=== PATIENT | female | born 1950 | race Caucasian/White ===

== ENCOUNTER → 2023-10-13 07:56 | Outpatient (REF) | payer MEDICARE, BC, SELFPAY ==
[2023-10-13 10:45] LABS: Calcium 9.6 mg/dl (8.4-10.2)
[2023-10-13 11:00] LABS: Vitamin D, 25-OH*** 70.3 ng/mL (30-80)
[2023-10-13 11:13] LABS: Cortisol, Random 10.7 ug/dl
[2023-10-13 11:17] LABS: Urine Calcium 14.1 mg/dl
[2023-10-13 12:32] LABS: 24 Hour Urine Calcium 225.6 mg/day; 24 Hour Urine Total Volume 1600 ml
[2023-10-14 09:16] LABS: Intact PTH 31.7 pg/ml (13.6-85.8)
[2023-10-16 01:16] LABS: Endomysial IgA Antibody Titer <1:10 (<1:10)
[2023-10-16 01:43] LABS: IgA 62 mg/dl (70-400)
[2023-10-17 13:41] LABS: tTG IgA Antibody 3.5 EU/ml (0-19); tTG IgG Antibody 4.3 EU/ml (0-19)
[2023-10-17 20:25] LABS: Albumin 4.32 g/dL (3.75-5.01); Alpha 1 Globulin 0.26 g/dL (0.19-0.46); Alpha 2 Globulin 0.69 g/dL (0.48-1.05); Monoclonal Protein 0.81 g/dL; SPEP IFE Reflex IFE Done
[2023-10-17 20:40] LABS: IgA 79 mg/dL (68-408); IgG 1226 mg/dL (768-1632); IgM 71 mg/dL (35-263)
== END ==
LOC: HWLAB 07:56
PROVIDERS: ATTENDING PHYSICIAN Physician Assistant; FAMILY PHYSICIAN Family Medicine
DX: E07.9 Disorder of thyroid, unspecified (principal); E21.5 Disorder of parathyroid gland, unspecified; E55.9 Vitamin D deficiency, unspecified; K90.0 Celiac disease; M81.0 Age-related osteoporosis without current pathological fracture
CPT/HCPCS: 36415; 81050; 82306; 82340; 82533; 82784; 83516; 83970; 84155; 84165; 84443; 86140; 86231; 86334

== ENCOUNTER 2023-11-16 06:44 | Day surgery (SDC) | payer MEDICARE, BC, SELFPAY ==
[2023-11-16 13:30] VITALS: BMI 27.8
[2023-11-16 13:40] VITALS: BP 166/77; BMI 27.8
[2023-11-16 16:12] VITALS: BP 134/113
[2023-11-16 16:15] VITALS: BP 139/66
[2023-11-16 16:31] VITALS: BP 147/61
[2023-11-16 16:33] VITALS: BP 147/61
== END 2023-11-16 16:45 | disposition home or self-care (01) ==
LOC: SDS 06:44
PROVIDERS: ATTENDING PHYSICIAN Internal Medicine Gastroenterology
DX: D12.0 Benign neoplasm of cecum (principal); D12.2 Benign neoplasm of ascending colon; K64.0 First degree hemorrhoids
CPT/HCPCS: 45390; 88305

== ENCOUNTER → 2024-02-05 13:27 | Outpatient (REF) | payer MEDICARE, BC, SELFPAY ==
[2024-02-05 15:05] LABS: HDL Cholesterol 48 mg/dl; LDL Cholesterol, Calculated 57 mg/dl; Total Cholesterol 129 mg/dl (50-199); Triglyceride 120 mg/dl (10-149); Very Low Density Lipoprotein 24 mg/dl (0-30)
== END ==
LOC: HWLAB 13:27
PROVIDERS: ATTENDING PHYSICIAN Family Medicine
DX: E78.00 Pure hypercholesterolemia, unspecified (principal)
CPT/HCPCS: 36415; 80061

== ENCOUNTER 2024-05-16 06:07 | Day surgery (SDC) | payer MEDICARE, BC, SELFPAY ==
[2024-05-16 06:52] VITALS: BMI 28.4
[2024-05-16 06:53] VITALS: BMI 28.4
[2024-05-16 06:54] VITALS: BP 151/68
[2024-05-16 08:46] VITALS: BP 108/62
[2024-05-16 09:02] VITALS: BP 147/69
[2024-05-16 09:10] VITALS: BP 139/65
== END 2024-05-16 09:15 | disposition home or self-care (01) ==
LOC: SDS 06:07
PROVIDERS: ATTENDING PHYSICIAN Internal Medicine Gastroenterology
DX: Z12.11 Encounter for screening for malignant neoplasm of colon (principal); K57.30 Diverticulosis of large intestine without perforation or abscess without bleeding; T18.4XXA Foreign body in colon, initial encounter; W44.8XXA Other foreign body entering into or through a natural orifice, initial encounter; K64.0 First degree hemorrhoids; Z86.010 Personal history of colon polyps; Z98.890 Other specified postprocedural states
CPT/HCPCS: 45388; 45379; 88305

== ENCOUNTER → 2024-06-03 13:13 | Outpatient (REF) | payer MEDICARE, BC, SELFPAY ==
[2024-06-03 16:49] LABS: ALT (SGPT) 15 U/L (0-35); AST (SGOT) 22 U/L (14-36); Albumin 4.5 g/dl (3.5-5.0); Alkaline Phosphatase 70 U/L (38-126); Blood Urea Nitrogen 10 mg/dl (7-17); Calcium 9.5 mg/dl (8.4-10.2); Carbon Dioxide 29 mmol/L (22-30); Chloride 101 mmol/L (98-107); Glucose 87 mg/dl (70-99); Potassium 4.4 mmol/L (3.5-5.1); Sodium 141 mmol/L (135-145); Total Bilirubin 0.3 mg/dl (0.2-1.3); Total Protein 7.3 g/dl (6.3-8.2); eGFR > 60.00
== END ==
LOC: HWLAB 13:13
PROVIDERS: ATTENDING PHYSICIAN Internal Medicine Rheumatology; FAMILY PHYSICIAN Family Medicine; REFERRING PHYSICIAN Internal Medicine Hematology & Oncology
DX: M81.0 Age-related osteoporosis without current pathological fracture (principal)
CPT/HCPCS: 36415; 80053

== ENCOUNTER → 2024-07-12 15:20 | Outpatient (REF) | payer MEDICARE, BC, SELFPAY | LOC: RAD 15:20 | PROVIDERS: ATTENDING PHYSICIAN Nurse Practitioner Family | DX: R05.3 Chronic cough (principal) | CPT/HCPCS: 71046 ==

== ENCOUNTER → 2024-08-19 10:17 | Outpatient (REF) | payer MEDICARE, BC, SELFPAY ==
[2024-08-19 11:31] LABS: % Basophils 0.8 % (0-2); % Eosinophils 3.1 % (0-6); % Immature Granulocytes 0.3 % (0-0.5); % Monocytes 7.6 % (1.7-9.3); % Neutrophils 69.2 % (42.2-75.2); Absolute Basophils 0.1 10^3/uL (0-0.2); Absolute Eosinophils 0.3 10^3/uL (0-0.7); Absolute Lymphocytes 1.7 10^3/uL (1.2-3.4); Absolute Monocytes 0.7 10^3/uL (0.1-0.6); Absolute Neutrophils 6.1 10^3/uL (1.4-6.5); Hematocrit 44.4 % (37.0-47.0); Hemoglobin 14.5 g/dL (12.0-16.0); Mean Corp Hgb Conc. 32.7 g/dL (33.0-37.0); Mean Corpuscular Volume 88.8 fL (81.0-99.0); Mean Platelet Volume 9.8 fL (7.4-10.4); Nucleated Red Blood Cells % 0 %; Platelet Count 283 10^3/uL (130-400); Red Cell Dist. Width 12.6 % (11.5-14.5); White Blood Cell Count 8.9 10^3/uL (4.8-10.8)
[2024-08-19 12:01] LABS: ALT (SGPT) 19 U/L (0-35); AST (SGOT) 24 U/L (14-36); Albumin 4.5 g/dl (3.5-5.0); Alkaline Phosphatase 61 U/L (38-126); Blood Urea Nitrogen 13 mg/dl (7-17); Carbon Dioxide 30 mmol/L (22-30); Chloride 102 mmol/L (98-107); Glucose 98 mg/dl (70-99); HDL Cholesterol 56 mg/dl; LDL Cholesterol, Calculated 67 mg/dl; Potassium 4.5 mmol/L (3.5-5.1); Sodium 140 mmol/L (135-145); Total Bilirubin 0.4 mg/dl (0.2-1.3); Total Cholesterol 156 mg/dl (50-199); Total Protein 7.2 g/dl (6.3-8.2); Triglyceride 169 mg/dl (10-149); Very Low Density Lipoprotein 33 mg/dl (0-30); eGFR > 60.00
[2024-08-19 12:17] LABS: Vitamin D, 25-OH*** 68.5 ng/mL (30-80)
[2024-08-19 12:26] LABS: Urine Albumin Negative (Neg - Trace); Urine Bilirubin Negative (Negative); Urine Character Clear (Clear); Urine Color Yellow; Urine Glucose Negative (Negative); Urine Ketone Negative (Negative); Urine Leukocyte 1+ (Negative); Urine Nitrite Negative (Negative); Urine Occult Blood Negative (Negative); Urine Specific Gravity 1.015 (<1.030); Urine Urobilinogen Negative (Neg - 1+)
[2024-08-19 12:30] LABS: TSH Reflex To Free T4 1.51 uIU/ml (0.47-4.68)
[2024-08-19 12:33] LABS: Glycohemoglobin (HgbA1c) 5.6 % (4.0-5.6)
[2024-08-19 13:34] LABS: Urine Red Blood Cell 0-2 /HPF (0-2); Urine Urothelial Cell 0-2 /LPF (FEW)
[2024-08-19 14:23] LABS: Microalbumin, Random Urine <0.6 mg/dl (0.6-1.7)
== END ==
LOC: HWLAB 10:17
PROVIDERS: ATTENDING PHYSICIAN Family Medicine; REFERRING PHYSICIAN Internal Medicine Hematology & Oncology
DX: Z00.00 Encounter for general adult medical examination without abnormal findings (principal); M81.0 Age-related osteoporosis without current pathological fracture; E78.00 Pure hypercholesterolemia, unspecified; I25.10 Atherosclerotic heart disease of native coronary artery without angina pectoris; I10 Essential (primary) hypertension; C49.9 Malignant neoplasm of connective and soft tissue, unspecified; R73.01 Impaired fasting glucose
CPT/HCPCS: 36415; 80053; 80061; 81003; 81015; 82043; 82306; 82570; 83036; 84443; 85025

== ENCOUNTER → 2024-10-03 10:35 | Outpatient (REF) | payer MEDICARE, BC, SELFPAY | LOC: HWWDC 10:35 | PROVIDERS: ATTENDING PHYSICIAN Family Medicine | DX: Z00.00 Encounter for general adult medical examination without abnormal findings (principal); Z12.31 Encounter for screening mammogram for malignant neoplasm of breast | CPT/HCPCS: 77063; 77067 ==

== ENCOUNTER → 2024-10-22 10:03 | Outpatient (REF) | payer MEDICARE, BC, SELFPAY ==
[2024-10-22 13:00] LABS: Blood Urea Nitrogen 15 mg/dl (7-17); Calcium 9.7 mg/dl (8.4-10.2); Carbon Dioxide 27 mmol/L (22-30); Chloride 101 mmol/L (98-107); Glucose 90 mg/dl (70-99); Iron 115 ug/dl (37-170); Magnesium 2.4 mg/dl (1.6-2.3); Potassium 4.2 mmol/L (3.5-5.1); Sodium 136 mmol/L (135-145); eGFR > 60.00
[2024-10-22 14:05] LABS: Folate 8.5 ng/ml (2.76-20); Vitamin B12 254 pg/ml (239-931)
== END ==
LOC: HWRAD 10:03
PROVIDERS: ATTENDING PHYSICIAN Internal Medicine; FAMILY PHYSICIAN Family Medicine
DX: M25.511 Pain in right shoulder (principal); M79.2 Neuralgia and neuritis, unspecified; I10 Essential (primary) hypertension
CPT/HCPCS: 36415; 73030; 80048; 82607; 82746; 83540; 83735

== ENCOUNTER 2024-11-14 12:10 | Emergency (ER) | payer MEDICARE, BC, SELFPAY ==
[2024-11-14] VITALS (8 sets, daily range): BP systolic 117–171; BP diastolic 52–103; BMI 28.4
[2024-11-14 12:43] LABS: % Basophils 0.7 % (0-2); % Immature Granulocytes 0.8 % (0-0.5); % Lymphocytes 15.1 % (20.5-51.1); % Monocytes 7.7 % (1.7-9.3); % Neutrophils 72.7 % (42.2-75.2); Absolute Basophils 0.1 10^3/uL (0-0.2); Absolute Eosinophils 0.4 10^3/uL (0-0.7); Absolute Immature Granulocytes 0.1 10^3/uL (0-0.05); Absolute Lymphocytes 1.8 10^3/uL (1.2-3.4); Absolute Monocytes 0.9 10^3/uL (0.1-0.6); Absolute Neutrophils 8.5 10^3/uL (1.4-6.5); Hematocrit 37.6 % (37.0-47.0); Hemoglobin 12.5 g/dL (12.0-16.0); Mean Corp Hgb Conc. 33.2 g/dL (33.0-37.0); Mean Corpuscular Hgb 29.5 pg (27.0-31.0); Mean Corpuscular Volume 88.7 fL (81.0-99.0); Mean Platelet Volume 8.7 fL (7.4-10.4); Nucleated Red Blood Cells % 0 %; Platelet Count 458 10^3/uL (130-400); Red Blood Cell Count 4.24 10^6/uL (4.20-5.40); Red Cell Dist. Width 14.2 % (11.5-14.5); White Blood Cell Count 11.6 10^3/uL (4.8-10.8)
[2024-11-14 12:54] LABS: INR 0.84
[2024-11-14 12:55] LABS: APTT 29.8 Sec (23.4-35.0)
--- NOTE | 2024-11-14 12:57 | ED.CVA ---
History of Present Illness
General
Chief Complaint: CVA/TIA Symptoms
Time Seen by Provider: 11/14/24 12:41
Onset of Stroke Symptoms
Onset of symptoms known: No
Time pt last seen normal is known: Yes
Date last time pt seen normal: 11/13/24
History of Present Illness
History of Present Illness:
74-year-old female with history of hypertension and leiomyosarcoma presenting to the emergency department for strokelike symptoms. Patient reports that she woke up at some point in the middle the night, is unsure what time it was. She notes that
she had a weird sensation in the back of her head, denies headache. She tried to walk to the bathroom and felt very unsteady with weakness to her right side. She went back to sleep and when she woke up, was still having symptoms. She notes that
she went to sleep last evening feeling normal. She is unsure exactly when symptoms started. Denies history of stroke in the past. Denies acute changes in vision. Denies recent fall or trauma. Does note that she had cysts abdominal surgery for
her leiomyosarcoma this past week, was discharged from the hospital on Monday, 11/10. Denies any postsurgical complications. Denies chest pain or difficulty breathing. Denies fever. Denies additional acute medical complaints
Past History
Past History
ED Past Medical History: Cancer (Liposarcoma) and Other (Psoriasis)
Social History
Tobacco: Non-smoker
Alcohol: None
Drug: None
Living: alone
Phy Exam
Physical Exam
Physical Exam:
General: Well-appearing, no clinical signs of dehydration, nontoxic and in no acute distress
HEENT: protecting airway
Neck: appears supple
CV: Normal heart rate, regular rhythm
Resp: No accessory muscle use, no increased work of breathing
Abd: Soft and non-distended, mid abdominal incision, healing appropriately without any erythema, no drainage
Extremities: No deformities, no swelling
Neuro: alert, mild weakness to the right upper extremity in comparison to the right lower extremity, globally intact. Slight diminished sensation to the right upper extremity comparison to the left
: deferred
Rectal: deferred
Psych: Normal affect
Skin: Intact
Scores
NIH Stroke Score
Level of Consciousness: 0 - Alert
LOC Questions: 0-Answers both correctly
LOC Commands: 0-Performs both correctly
Best Horizontal Gaze: 0-Normal
Visual Jason: 0=Normal, no visual loss
Facial Palsy: 0=Normal, symmetrical
Motor - Right Arm: 0=No drift 10 seconds
Motor - Left Arm: 0=No drift 10 seconds
Motor - Right Le-No drift 5 seconds
Motor - Left Le-No drift 5 seconds
Limb Ataxia: 0-Absent
Sensation: 1-Mild loss
Best Language: 0-No aphasia
Dysarthria: 0-Normal
Extinction and Inattention: 0-No abnormality
Total Score:: 1
Course
Orders/Labs/Results
Orders:
Orders
11/14/24 12:27
Electrocardiogram (*1) Urgent
Reason for Study: Other
Other Reason for Exam: Possible Stroke
EKG- Treatment ONCE
11/14/24 12:29
Complete Blood Count/With Diff Urgent
Comprehensive Metabolic Panel Urgent
PTT Urgent
Prothrombin Time Urgent
Troponin I Urgent
11/14/24 12:52
CT Head & Neck Angio W/wo IV Urgent
Comment:
Reason For Exam: R-weakness since early this morning, r/o stroke
Abnormal Lab Results
11/14/24
12:29
WBC 11.6 H 10^3/uL
(4.8-10.8)
Plt Count 458 H 10^3/uL
(130-400)
Abs Immat Gran (auto) 0.1 H 10^3/uL
(0-0.05)
Absolute Neuts (auto) 8.5 H 10^3/uL
(1.4-6.5)
Absolute Monos (auto) 0.9 H 10^3/uL
(0.1-0.6)
Immature Gran % 0.8 H %
(0-0.5)
Lymphocytes % 15.1 L %
(20.5-51.1)
Glucose 113 H mg/dl
(70-99)
Calcium 10.4 H mg/dl
(8.4-10.2)
11/14/24 12:29
11/14/24 12:29
Vital Signs
Initial and Last Documented VS:
Initial Vital Signs
Temp Pulse Resp BP Pulse Ox
98.6 F 83 18 171/101 99
11/14/24 12:14 11/14/24 12:14 11/14/24 12:14 11/14/24 12:14 11/14/24 12:14
Last Documented Vital Signs
Temp Pulse Resp BP Pulse Ox
98.6 F 62 16 117/103 96
11/14/24 12:14 11/14/24 15:45 11/14/24 16:00 11/14/24 15:30 11/14/24 15:45
MDM/Problems Addressed
MDM/Problems Addressed:
74-year-old female with history of leiomyosarcoma presenting to the emergency department with right-sided weakness and 'feeling off' since early this morning. Vital signs significant for high blood pressure.
On exam, patient is resting comfortably, no acute distress or discomfort. On neurologic exam, does have some very minimal decrease sensation to the right upper extremity and slightly decreased strength in the right upper extremity comparison to the
left, however no significant deficits. CVA is a consideration, however patient is not within the window for any thrombolytics. Last normal was last evening, prior to going to bed. Patient denying any headache, lower suspicion for subarachnoid.
Plan for CT imaging and neurology consultation.
16:00 - Patient's CT imaging without acute pathology. 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 Suspected to be incidental finding. In consultation with neurology, will come evaluate for ultimate disposition
17:00 -Per neurology recommendations, feel patient can appropriately go home with 21 days of Plavix and follow-up. Patient is agreeable with this plan, would like to go home. However, strict return precautions were communicated and patient
verbalized understanding
*Critical Care Note
Total Time (30-74mins, 75-104mins- exclusive of procedures): Not Applicable
ED Attending Note
-
Portions of this chart may have been created with voice recognition software.� Occasional wrong word or��sound alike� substitutions may have occurred due to the inherent limitations of voice recognition software.
Discharge Plan
Departure
Prescriptions:
No Action
calcium carbonate-vitamin D3 1 EACH tablet
1 tab PO BID
docusate sodium [Colace] 100 mg Capsule
100 mg PO BID
aspirin 81 mg Tablet
81 mg PO DAILY
lisinopril 5 mg Tablet
5 mg PO DAILY
rosuvastatin 20 mg Tablet
20 mg PO HS
simethicone 80 mg Tablet
180 mg PO DIRECTED
Colyte
PO DIRECTED
Dulcolax (bisacodyl)
10 mg PO DIRECTED
Prevagen
1 cap PO DAILY
polyethylene glycol 3350 [Miralax] 17 gram/dose Powder
PO DAILY
Patient Comments:
This medication was daily for 7 days only.
Referrals:
Wally Van DO [Family Provider] -
Interventions
Interventions:
*Risk Screen - Suicide Last Done: 11/14/24 12:14
*General Assessment Last Done: 11/14/24 12:14
*Neglect/Abuse Screening Last Done: 11/14/24 12:14
*ED COVID-19 Vaccine History Last Done: 11/14/24 12:14
ED- Cardiac Assessment Last Done: 11/14/24 12:53
ED- Neurological Assessment Last Done: 11/14/24 12:39
ED- Pulmonary Assessment Last Done: 11/14/24 12:39
ED Swallowing Screen Last Done: 11/14/24 12:39
Discharge Date and Time
Print Language: SPANISH
[2024-11-14 13:01] LABS: ALT (SGPT) 30 U/L (0-35); AST (SGOT) 31 U/L (14-36); Albumin 4.3 g/dl (3.5-5.0); Alkaline Phosphatase 93 U/L (38-126); Blood Urea Nitrogen 11 mg/dl (7-17); Calcium 10.4 mg/dl (8.4-10.2); Carbon Dioxide 26 mmol/L (22-30); Chloride 101 mmol/L (98-107); Estimated Creatinine Clearance 72 ml/min; Glucose 113 mg/dl (70-99); Potassium 4.4 mmol/L (3.5-5.1); Sodium 136 mmol/L (135-145); Total Bilirubin 0.6 mg/dl (0.2-1.3); Total Protein 7.3 g/dl (6.3-8.2); eGFR > 60.00
[2024-11-14 13:10] LABS: Troponin I < 0.012 ng/ml
--- NOTE | 2024-11-14 16:42 | CON.NEURO ---
Neuro Assessment/Plan
Assessment
lacunar stroke vs TIA, symptoms are improving,
CTA head/neck no hemodynamically significant stenosis
stroke secondary prevention continue ASA 81, Rosuvastatin 20
21 days of plavix
offered patient options of admission, MRI which generally doesn't change the management, or seeing her book trimmer as an outpatient for afib screening; she elects the later option
Plan
d/c home with 21 days of Plavix
follow up with her book trimmer as an outpatient
Consultation
Order
Date of Consultation: 11/14/24
Requesting Provider: Ne Stringer
Reason for Consult: Stroke
Subjective/Objective
Subjective Data
Date of Service: November 14, 2024
Objective Data
Vital Signs
Temp Pulse Resp BP Pulse Ox
37.0 C 62 16 117/103 96
11/14/24 12:14 11/14/24 15:45 11/14/24 16:00 11/14/24 15:30 11/14/24 15:45
Lab Results
11/14/24 12:29
11/14/24 12:29
PT 12.0 Sec (11.4-14.6) 11/14/24 12:29
INR 0.84 11/14/24 12:29
APTT 29.8 Sec (23.4-35.0) 11/14/24 12:29
Sodium 136 mmol/L (135-145) 11/14/24 12:29
Potassium 4.4 mmol/L (3.5-5.1) 11/14/24 12:29
BUN 11 mg/dl (7-17) 11/14/24 12:29
Glucose 113 mg/dl (70-99) H 11/14/24 12:29
Calcium 10.4 mg/dl (8.4-10.2) H 11/14/24 12:29
Patient Allergies
No Known Allergies Allergy (Verified 11/16/23 13:51)
Physical Exam
-
AAOx3 speech clear, language intact
VFF, EOMI, face symmetric
trace right pronator drift
sensation intact to pin/vib
Medications
-
Home Medications
�Medication �Instructions �Recorded
calcium 500 mg (as 1 tab PO BID 12/07/20
carbonate)-vitamin D3 10 mcg (400
unit) tablet
Colyte PO DIRECTED 11/16/23
Dulcolax (bisacodyl) 10 mg PO DIRECTED 11/16/23
Prevagen 1 cap PO DAILY 11/16/23
aspirin 81 mg tablet 81 mg PO DAILY 11/16/23
docusate sodium 100 mg capsule 100 mg PO BID 11/16/23
(Colace)
lisinopril 5 mg tablet 5 mg PO DAILY 11/16/23
polyethylene glycol 3350 17 g PO DAILY 11/16/23
gram/dose oral powder (Miralax)
rosuvastatin 20 mg tablet 20 mg PO HS 11/16/23
simethicone 80 mg tablet 180 mg PO DIRECTED 11/16/23
[2024-11-14] MEDS: PLAVIX 75 MG PO (17:16)
== END 2024-11-14 17:18 | disposition home or self-care (01) ==
LOC: EMR 12:10
PROVIDERS: Student in an Organized Health Care Education/Training Program; EMERGENCY PHYSICIAN Student in an Organized Health Care Education/Training Program; FAMILY PHYSICIAN Family Medicine
DX: R53.1 Weakness (principal); G45.9 Transient cerebral ischemic attack, unspecified; I10 Essential (primary) hypertension
CPT/HCPCS: 99284; 70496; 70498; 80053; 84484; 85025; 85610; 85730; 93005; Q9967

== ENCOUNTER → 2024-11-19 09:45 | Outpatient (REF) | payer MEDICARE, BC, SELFPAY ==
[2024-11-19 12:53] LABS: ALT (SGPT) 17 U/L (0-35); AST (SGOT) 21 U/L (14-36); Albumin 4.1 g/dl (3.5-5.0); Alkaline Phosphatase 75 U/L (38-126); Blood Urea Nitrogen 11 mg/dl (7-17); Carbon Dioxide 28 mmol/L (22-30); Chloride 103 mmol/L (98-107); Glucose 95 mg/dl (70-99); Magnesium 2.4 mg/dl (1.6-2.3); Potassium 5.1 mmol/L (3.5-5.1); Sodium 136 mmol/L (135-145); Total Bilirubin 0.4 mg/dl (0.2-1.3); Total Protein 6.9 g/dl (6.3-8.2); eGFR > 60.00
== END ==
LOC: HWLAB 09:45
PROVIDERS: ATTENDING PHYSICIAN Internal Medicine Rheumatology; FAMILY PHYSICIAN Family Medicine
DX: E83.41 Hypermagnesemia (principal); M81.0 Age-related osteoporosis without current pathological fracture; Z79.899 Other long term (current) drug therapy
CPT/HCPCS: 36415; 80053; 83735

== ENCOUNTER → 2024-11-29 11:27 | Outpatient (REF) | payer MEDICARE, BC, SELFPAY ==
[2024-11-29 16:50] LABS: HDL Cholesterol 49 mg/dl; LDL Cholesterol, Calculated 62 mg/dl; Total Cholesterol 144 mg/dl (50-199); Triglyceride 166 mg/dl (10-149); Very Low Density Lipoprotein 33 mg/dl (0-30)
[2024-11-30 09:48] LABS: Glycohemoglobin (HgbA1c) 5.2 % (4.0-5.6)
== END ==
LOC: HWRAD 11:27
PROVIDERS: ATTENDING PHYSICIAN Nurse Practitioner Adult Health; FAMILY PHYSICIAN Family Medicine
DX: E04.1 Nontoxic single thyroid nodule (principal); R53.1 Weakness; I10 Essential (primary) hypertension; E78.5 Hyperlipidemia, unspecified; I67.1 Cerebral aneurysm, nonruptured; Z13.228 Encounter for screening for other metabolic disorders
CPT/HCPCS: 36415; 76536; 80061; 83036

== ENCOUNTER → 2024-12-19 13:09 | Outpatient (REF) | payer MEDICARE, BC, SELFPAY | LOC: PAVMRI 13:09 | PROVIDERS: ATTENDING PHYSICIAN Nurse Practitioner Adult Health; FAMILY PHYSICIAN Family Medicine | DX: R53.1 Weakness (principal) | CPT/HCPCS: 70553; A9575 ==

== ENCOUNTER → 2024-12-24 09:48 | Outpatient (REF) | payer MEDICARE, BC, SELFPAY ==
[2024-12-24 12:33] LABS: Magnesium 2.3 mg/dl (1.6-2.3)
[2024-12-24 13:21] LABS: Vitamin B12 344 pg/ml (239-931)
== END ==
LOC: HWLAB 09:48
PROVIDERS: ATTENDING PHYSICIAN Family Medicine
DX: R79.89 Other specified abnormal findings of blood chemistry (principal); E83.41 Hypermagnesemia; D51.8 Other vitamin B12 deficiency anemias
CPT/HCPCS: 36415; 82607; 83735

== ENCOUNTER 2025-04-08 13:24 | Emergency (ER) | payer MEDICARE, BC, SELFPAY ==
[2025-04-08 13:29] VITALS: BP 150/78
--- NOTE | 2025-04-08 14:23 | ED.GENMED ---
History of Present Illness
<Clarence Horta MD, Resident - Last Filed: 04/08/25 15:41>
General
Chief Complaint: Post Operative Problem(s)
Source: patient and family
Time Seen by Provider: 04/08/25 14:01
History of Present Illness
History of Present Illness:
75 year old female with recent craniotomy on 03/24/2025 comes to the ED at the request of her surgeon due to pain in her right leg. Her neurosurgeon was concerned for possible DVT in her leg so sent her to the ED. Patient describes that her right
thigh pain started shortly after she came back home following her surgery. The pain has not been sticking in one place, and has been radiating around her posterior thigh. She says that walking helps with her pain and that she took tylenol last night
which helped her fall asleep. Patient has a history of right foot neuropathy for which she has been taking 300mg Gabapentin. She does not have any shortness of breath, chest pain, fevers or chills. She has had 7 pounds of weight loss since the
surgery but her appetite started improving last night.
Past History
<Clarence Horta MD, Resident - Last Filed: 04/08/25 15:41>
Past History
ED Past Medical History: Cancer (Liposarcoma) and Other (Psoriasis)
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
Social History
Tobacco: Non-smoker
Alcohol: None
Drug: None
Living: alone
Phy Exam
<Clarence Horta MD, Resident - Last Filed: 04/08/25 15:41>
General Physical Exam
General Presentation: mild distress
General Skin: warm and dry
General Habitus: normal
General Mental: alert
Cardiovascular Exam
Cardiovascular Exam: regular rate/rhythm, no edema, no gallop and no murmur
Pulmonary Exam
Pulmonary Exam: lungs clear, no respiratory distress, no rales, no crackles, no rhonchi, no wheezing and no cough
Musculoskeletal Exam
Musculoskeletal Exam: other (Right posterior thigh tenderness)
Course
<Clarence Horta MD, Resident - Last Filed: 04/08/25 15:41>
Orders/Labs/Results
Orders:
Orders
04/08/25 13:37
CT Head W/o Iv Contrast Urgent
Comment:
Reason For Exam: Pain
04/08/25 13:38
US Periph Venous LOWER Ext RT Urgent
Comment:
Reason For Exam: Rule out DVT
Vital Signs
Initial and Last Documented VS:
Initial Vital Signs
Temp Pulse Resp BP Pulse Ox
98.2 F 73 15 150/78 99
04/08/25 13:29 04/08/25 13:29 04/08/25 13:29 04/08/25 13:29 04/08/25 13:29
Last Documented Vital Signs
Temp Pulse Resp BP Pulse Ox
98.2 F 73 15 150/78 99
04/08/25 13:29 04/08/25 13:29 04/08/25 13:29 04/08/25 13:29 04/08/25 14:24
<Conor Hope, DO - Last Filed: 04/08/25 19:43>
Orders/Labs/Results
Orders:
Orders
04/08/25 13:37
CT Head W/o Iv Contrast Urgent
Comment:
Reason For Exam: Pain
04/08/25 13:38
US Periph Venous LOWER Ext RT Urgent
Comment:
Reason For Exam: Rule out DVT
Vital Signs
Initial and Last Documented VS:
Initial Vital Signs
Temp Pulse Resp BP Pulse Ox
98.2 F 73 15 150/78 99
04/08/25 13:29 04/08/25 13:29 04/08/25 13:29 04/08/25 13:29 04/08/25 13:29
Last Documented Vital Signs
Temp Pulse Resp BP Pulse Ox
98.2 F 73 15 150/78 99
04/08/25 13:29 04/08/25 13:29 04/08/25 13:29 04/08/25 13:29 04/08/25 14:24
<Clarence Horta MD, Resident - Last Filed: 04/08/25 15:41>
MDM/Problems Addressed
Differential Diagnosis Includes:
DVT, Sciatic Pain, Neuropathic pain, Musculoskeletal pain
MDM/Problems Addressed:
75 year old female comes to the ED at the request of her Neurosurgeon due to concern for a DVT.
US Lower Right extremity was negative for DVT
Head CT did not show any acute findings
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
Patient's dose of Gabapentin not enough to control her symptoms at this time. Will increase frequency of medication which can help reduce her symptoms.
<Clarence Horta MD, Resident - Last Filed: 04/08/25 15:41>
*Pulse Oximetry
SaO2: 99
Oxygen Mode of Delivery: Room air
Patient hypoxic: no
*Critical Care Note
Total Time (30-74mins, 75-104mins- exclusive of procedures): Not Applicable
ED Attending Note
<Clarence Horta MD, Resident - Last Filed: 04/08/25 15:41>
-
Portions of this chart may have been created with voice recognition software.� Occasional wrong word or��sound alike� substitutions may have occurred due to the inherent limitations of voice recognition software.
<Conor Hope, - Last Filed: 04/08/25 19:43>
ED Attending Note
Patient seen and examined by attending physician: Yes
I performed a history and physical exam of patient and discussed management with resident, I reviewed resident's note and agree with documented findings and plan of care.: Yes
ED Attending Note:
I have reviewed and agree with history and treatment plan by Reinier Horta MD. My exam revealed 75-year-old female in no acute distress healing surgical incision on scalp normal neurologic exam negative Homans' sign doubt PE or DVT. Likely
neuropathic pain. Patient stable for discharge and will increase Neurontin to 300 3 times daily.
Discharge Plan
Departure
Patient Disposition: Home (Routine Discharge)
Date of Disposition: 04/08/25
Time of Disposition: 15:31
Patient with high blood pressure during this ER visit?: Yes
Condition: Good
Discharge Problem:
Acute pain of right lower extremity
Instructions: BLOOD PRESSURE
Prescriptions:
New
gabapentin 300 mg capsule
300 mg PO TID Qty: 90 0RF
No Action
calcium carbonate-vitamin D3 1 EACH tablet
1 tab PO BID
docusate sodium [Colace] 100 mg Capsule
100 mg PO BID
aspirin 81 mg Tablet
81 mg PO DAILY
lisinopril 5 mg Tablet
5 mg PO DAILY
rosuvastatin 20 mg Tablet
20 mg PO HS
simethicone 80 mg Tablet
180 mg PO DIRECTED
Colyte
PO DIRECTED
Dulcolax (bisacodyl)
10 mg PO DIRECTED
Prevagen
1 cap PO DAILY
polyethylene glycol 3350 [Miralax] 17 gram/dose Powder
PO DAILY
Patient Comments:
This medication was daily for 7 days only.
clopidogrel [Plavix] 75 mg tablet
75 mg PO DAILY 21 Days Qty: 21 0RF
Referrals:
Wally Van DO [Family Provider, Family Practice] - Call in 1-3 days for appt
Interventions
Interventions:
*Risk Screen - Suicide Last Done: 04/08/25 13:29
*General Assessment Last Done: 04/08/25 13:29
*Neglect/Abuse Screening Last Done: 04/08/25 13:29
*ED- Fall Risk Assessment Last Done: 04/08/25 16:06
*ED COVID-19 Vaccine History Last Done: 04/08/25 16:06
*Nursing Disposition Last Done: 04/08/25 16:06
ED-Skin Assessment Last Done: 04/08/25 16:07
Discharge Date and Time
Discharge Date/Time: 04/08/25 16:08
Print Language: SAO TOMEAN
== END 2025-04-08 16:08 | disposition home or self-care (01) ==
LOC: EMR 13:24
PROVIDERS: EMERGENCY PHYSICIAN Emergency Medicine; FAMILY PHYSICIAN Family Medicine
DX: M79.661 Pain in right lower leg (principal); Z79.899 Other long term (current) drug therapy
CPT/HCPCS: 99284; 70450; 93971

== ENCOUNTER → 2025-04-15 10:31 | Outpatient (REF) | payer MEDICARE, BC, SELFPAY ==
[2025-04-15 16:57] LABS: Vitamin B12 588 pg/ml (239-931)
== END ==
LOC: HWLAB 10:31
PROVIDERS: ATTENDING PHYSICIAN Family Medicine
DX: R79.89 Other specified abnormal findings of blood chemistry (principal); Z79.899 Other long term (current) drug therapy
CPT/HCPCS: 36415; 82607

== ENCOUNTER → 2025-05-12 10:34 | Outpatient (REF) | payer MEDICARE, BC, SELFPAY | LOC: HWRAD 10:34 | PROVIDERS: ATTENDING PHYSICIAN Family Medicine | DX: J06.9 Acute upper respiratory infection, unspecified (principal); J18.9 Pneumonia, unspecified organism | CPT/HCPCS: 71046 ==

== ENCOUNTER 2025-08-12 06:26 | Day surgery (SDC) | payer MEDICARE, BC, SELFPAY | END 2025-08-12 14:48 | disposition home or self-care (01) | LOC: GI 06:26 | PROVIDERS: ATTENDING PHYSICIAN Internal Medicine Gastroenterology | DX: Z12.11 Encounter for screening for malignant neoplasm of colon (principal); Z86.0100 Personal history of colon polyps, unspecified; K64.8 Other hemorrhoids; K57.30 Diverticulosis of large intestine without perforation or abscess without bleeding; K63.5 Polyp of colon; K62.1 Rectal polyp | CPT/HCPCS: 45385; 45380; 88305 ==